=== PATIENT | male | born 1945 | race Caucasian/White ===

== ENCOUNTER 2021-05-29 10:55 | Outpatient (CLI) | payer MEDICARE, OTHER, SELFPAY ==
--- NOTE | 2021-05-29 11:15 | XR_ITS ---
WS: [id number] CHEST 2 VIEWS HISTORY: ASTHMA EXACERBATION COMPARISON: 05/18/2018 Lungs: Benign granuloma the LEFT lung base. Subsegmental atelectasis at the LEFT lung base is similar to the prior study. Cardiac size: Normal. Mediastinum/Aorta: Mild atherosclerosis aorta. Bones: Normal. XR/XR chest 2V* [id number] IMPRESSION: Subsegmental atelectasis at the LEFT lung base. No pneumonia.
== END 2021-05-29 10:56 | disposition home or self-care (01) ==
PROVIDERS: PCP Clinical Nurse Specialist Adult Health; Visit Provider Clinical Nurse Specialist Adult Health
DX: J45.901 Unspecified asthma with (acute) exacerbation (principal); J98.11 Atelectasis
CPT/HCPCS: 71046

== ENCOUNTER → 2021-07-25 14:36 | Outpatient (BNVA) | payer MEDICARE, OTHER, SELFPAY | PROVIDERS: Visit Provider Clinical Nurse Specialist Adult Health | DX: N18.30 Chronic kidney disease, stage 3 unspecified (principal); E05.90 Thyrotoxicosis, unspecified without thyrotoxic crisis or storm; Z79.899 Other long term (current) drug therapy | CPT/HCPCS: 80048; 81000; 82042; 82306; 82310; 83036; 83735; 83970; 84100; 84550 ==

== ENCOUNTER 2021-12-06 12:40 | Emergency (ER) | payer MEDICARE, OTHER, SELFPAY ==
--- NOTE | 2021-12-06 12:46 | ECG_ITS ---
[facility] Test Date: 2021-12-06 Pat Name: Ralph Reyes Department: Room: Gender: Male Field Organizer: : 1945 Requested By: Maryana Chahal Order Number: [id number] Nicole MD: Casa Parks M.D. Measurements Intervals [place] Rate: 29 P: [place]: QRS: -44 QRSD: 142 T: -28 QT: 527 QTc: 371 Interpretive Statements COMPLETE HEART BLOCK No previous ECG available for comparison Electronically Signed On 12-06-2021 16:21:21 CDT by Casa Parks M.D. [id number]
[2021-12-06 12:47] VITALS: PULSE 29; RESP 16; TEMP 36.2; O2SAT 97
--- NOTE | 2021-12-06 12:50 | XR_ITS ---
WS: [id number] XR chest 1V portable [id number] REASON FOR EXAM: cp FINDINGS: Chest is unchanged compared to previous examination of 05/29/2021. Mild to moderate tortuosity the thoracic aorta with calcification of the aortic arch. Normal heart size. Calcified granulomatous disease in both hemithoraces. No acute pulmonary parenchymal or pleural abnormality. Parenchymal scarring in the left lung base wit h pleural thickening blunting the left costophrenic angle. Mild changes of degenerative spondylosis in the mid and lower thoracic spine. XR/XR chest 1V portable [id number] IMPRESSION: No acute chest abnormality.
--- NOTE | 2021-12-06 12:58 | ED_ITS ---
HPI - Arrhythmia/Palpitations General: Chief Complaint: Arrhythmia/Palpitations Stated Complaint: sent for EKG Time Seen by Provider: 12/06/21 12:52 Source: patient Mode of arrival: ambulatory Limitations: no limitations History of Present Illness: 76-year-old male who has been having weakness along with shortness of breath since yesterday. He states it started suddenly and he is just fixed felt extremely weak this felt better when he is laid down he went to see his PCP today and they did checked his heart rate and it was in the 30s he has no history of abnormal heart rates he is not on any beta-blockers patient's heart rate is 30 here as well. Denies any pain. Associated symptoms: Deny nausea or vomiting Review of Systems Const: Denies: fever(s), chills, body aches or change in appetite Eyes: Denies: blurry vision or eye discomfort ENMT: Denies: throat pain or dental pain Card: Reports: irregular heart rhythm Resp: Reports: dyspnea GI: Denies: abdominal pain, nausea, vomiting or diarrhea : Denies: dysuria Musc: Denies: neck pain or back pain Skin/Breast: Denies: rash Neuro: Denies: headache(s) Psych: Denies: depression Juan Pablo/Lymph: Denies: easy bruising All/Imm: Denies: urticaria PFSH ED PFSH: Medical History Hypertension Social History Smoking and tobacco status: never smoked Alcohol intake: never Physical Exam Const: COMMON NORMALS: patient oriented x3 HENMT: COMMON NORMALS: normocephalic and atraumatic HEAD & SCALP: normocephalic and atraumatic Eye: COMMON NORMALS: Equal, round and reactive pupils present and EOMs intact bilaterally PUPIL: Yes Equal, round and reactive pupils present Neck/C-Spine: COMMON NORMALS: full ROM and supple Chest: COMMONS NORMALS: normal inspection of the chest and normal palpation of entire chest wall Resp: COMMON NORMALS: normal respiratory effort, No retractions, No use of accessory muscles and clear to auscultation bilaterally AUSCULTATION: clear to auscultation bilaterally Cardio: COMMON NORMALS: regular rhythm and No murmurs present (Cardio) RATE: bradycardic RHYTHM: regular rhythm GI: COMMON NORMALS: Normal to inspection, nondistended, normoactive bowel sounds present, Soft to palpation, non-tender and no masses PALPATION: Yes Soft to palpation Extremity: COMMON NORMALS: normal to inspection and full ROM Neuro: COMMON NORMALS: patient oriented x3, moves all extremities and no focal motor deficits Psych: COMMON NORMALS: mental status grossly normal, Normal thought process present and cooperative THOUGHT PROCESS: Normal thought process present Skin: COMMON NORMALS: no rashes or lesions noted and no wounds GENERAL SKIN EXAM: no rashes or lesions noted Course Vital Signs: Vital signs: Vital Signs Temperature 97.2 F L 12/06/21 12:47 Pulse Rate 29 L 12/06/21 12:47 Respiratory Rate 16 12/06/21 12:47 Pulse Oximetry 97 12/06/21 12:47 Oxygen Delivery Me thod 12/06/21 12:47 MDM - Arrhythmia/Palpitations Medical Decision Making Patient presents with a third-degree heart block his heart rate has improved after atropine currently is 40 his blood pressures been normal here 140/55 currently I spoke to Dr. Rebolledo on for cardiology the [address] Guo and Dr. Ozuna who does pacemakers are both out of town and so will transfer I did speak to [facility] will transfer there for higher level of care at this time. Lab Data : 12/06/21 13:00 12/06/21 13:00 Radiology Impressions Chest X-Ray 12/06/21 12:50 IMPRESSION: No acute chest abnormality. Laboratory Results WBC 9.6 10^3/uL (4.0-10.0) 12/06/21 13:00 RBC 5.10 10^6/uL (4.1-5.3) 12/06/21 13:00 Hgb 15.3 g/dL (11.7-16.6) 12/06/21 13:00 Hct 47.4 % (42.0-52.0) 12/06/21 13:00 MCV 92.9 fl (80-94) 12/06/21 13:00 MCH 30.0 pg (28.0-34.0) 12/06/21 13:00 MCHC 32.3 g/dL (30.0-36.0) 12/06/21 13:00 RDW 12.8 % (12.1-15.1) 12/06/21 13:00 Plt Count 326 10^3/cmm (130-400) 12/06/21 13:00 MPV 10.7 fL (7.4-10.4) H 12/06/21 13:00 Neut % (Auto) 68.8 % 12/06/21 13:00 Lymph % (Auto) 18.7 % 12/06/21 13:00 Cavalier % (Auto) 11.2 % 12/06/21 13:00 Eos % (Auto) 0.8 % 12/06/21 13:00 Baso % (Auto) 0.3 % 12/06/21 13:00 Neut # (Auto) 6.61 10^3/uL (1.8-7.7) 12/06/21 13:00 Lymph # (Auto) 1.8 10^3/uL (0.8-4.8) 12/06/21 13:00 Cavalier # (Auto) 1.1 10^3/uL (0.2-0.9) H 12/06/21 13:00 Eos # (Auto) 0.1 10^3/uL (0.0-0.8) 12/06/21 13:00 Baso # (Auto) 0.0 10^3/uL (0.0-0.1) 12/06/21 13:00 Nucleated RBC % (auto) 0 % 12/06/21 13:00 Nucleated RBCs # 0.0 /100WBC 12/06/21 13:00 EKG Data EKG 1: I personally reviewed and interpreted this EKG as follows: EKG interpretation date: 12/06/21 EKG interpretation time: 13:00 Interpretation: third degree heart block hr [address] or t wave abnormalities qrs 144 qtc 378 Other EKG comments: Chest X-Ray 12/06/21 12:50 IMPRESSION: No acute chest abnormality. Critical Care Time Critical Care Time: Critical Care Time: Yes Total Critical Care Time: 40 Attestation: The high probability of a clinically significant, sudden or life threatening deterioration of the patient's cv system(s) required my full and direct attention, intervention and personal management. The critical care time is as shown. This time is in addition to time spent performing any reported procedures but includes the following: [x] Data and vital sign review and interpretation [x] Patient assessment, examination and intervention [x] Documentation [x] Medication orders and management Discharge Plan Discharge Patient Disposition: Xfer Short-Term Hosp Clinical Impression: Heart block AV third degree Condition: Stable Prescriptions: No Action omega-3 fatty acids 500 mg capsule 500 mg PO DAILY aspirin [Adult Aspirin Regimen] 81 mg tablet,delayed release (DR/EC) 81 mg PO DAILY amlodipine 5 mg tablet 5 mg PO DAILY furosemide 40 mg tablet 40 mg PO DAILY losartan-hydrochlorothiazide 50-12.5 mg tablet 1 tab PO DAILY Referrals: Michael Sy HIGHWAY DESIGN ENGINEER [Primary Care Provider] - Coding Level of Care Code ED Supervisor Process Testing for Chg Fwd Exam Comprehensive
--- NOTE | 2021-12-06 13:00 | ECG_ITS ---
[facility] Test Date: 2021-12-06 Pat Name: Ralph Reyes Department: Room: Gender: Male Package Worker: : 1945 Requested By: Maryana Chahal Order Number: [id number] Nicole MD: Casa Parks M.D. Measurements Intervals [place] Rate: 30 P: [place]: QRS: -42 QRSD: 144 T: -28 QT: 520 QTc: 367 Interpretive Statements THIRD DEGREE AV BLOCK No previous ECG available for comparison Electronically Signed On 12-06-2021 16:20:57 CDT by Casa Parks M.D. [id number]
[2021-12-06] MEDS: atropine 0.1 mg/mL Syr 10 mL 0.5 MG IVP (13:08)
[2021-12-06 13:18] LABS: Basophils % 0.3 %; Eosinophils # 0.1 10^3/uL (0.0-0.8); Eosinophils % 0.8 %; Hematocrit 47.4 % (42.0-52.0); Hemoglobin 15.3 g/dL (11.7-16.6); Lymphocytes # 1.8 10^3/uL (0.8-4.8); Lymphocytes % 18.7 %; Mean Corpuscular HGB Conc 32.3 g/dL (30.0-36.0); Mean Corpuscular Volume 92.9 fl (80-94); Mean Platelet Volume 10.7 fL (7.4-10.4); Monocytes # 1.1 10^3/uL (0.2-0.9); Monocytes % 11.2 %; Neutrophils # 6.61 10^3/uL (1.8-7.7); Neutrophils % 68.8 %; Nucleated Red Blood Cells % 0 %; Platelet Count 326 10^3/cmm (130-400); Red Cell Distribution Width 12.8 % (12.1-15.1); White Blood Count 9.6 10^3/uL (4.0-10.0)
[2021-12-06 13:22] VITALS: BP 140/55; PULSE 38; RESP 12; O2SAT 97
[2021-12-06 13:33] LABS: Troponin(5th) Baseline 54 ng/L (0-15)
[2021-12-06 13:42] LABS: Alanine Aminotransferase 33 U/L (0-41); Albumin Level 3.8 g/dL (3.5-5.2); Alkaline Phosphatase 115 U/L (40-130); Blood Urea Nitrogen 36 mg/dL (8-23); Calcium 9.7 mg/dL (8.5-10.5); Carbon Dioxide 28 mmol/L (22-29); Chloride 104 mmol/L (98-107); Globulin 2.5 g/dL (1.3-4.6); Glucose 118 mg/dL (65-115); Osmolality Calculated 301 mOsm/kg (285-295); Sodium 141 mmol/L (136-145); Thyroid Stimulating Hormone 2.75 uIU/mL (0.27-4.20); Total Bilirubin 0.5 mg/dL (0.15-1.2); Total Protein 6.3 g/dL (6.6-8.7)
[2021-12-06 13:43] LABS: Anion Gap 13.6 (5-19); Aspartate Amino Transferase 26 U/L (0-40); Potassium 4.6 mmol/L (3.5-5.1)
[2021-12-06] MEDS: lidocaine 2% viscous 15 ML, aluminum-mag hydrox-simethicon 30 ML, sucralfate oral liq 1 GM PO (14:01)
== END 2021-12-06 14:05 | disposition short-term general hospital (02) ==
PROVIDERS: Emergency Provider Emergency Medicine; PCP Clinical Nurse Specialist Adult Health
DX: I44.2 Atrioventricular block, complete (principal); I10 Essential (primary) hypertension; Z79.82 Long term (current) use of aspirin
CPT/HCPCS: 71045; 80053; 84443; 84484; 85025; 93005; 96374; 99285; J0461

== ENCOUNTER → 2022-01-24 11:53 | Outpatient (BNVA) | payer MEDICARE, OTHER, SELFPAY | PROVIDERS: PCP Clinical Nurse Specialist Adult Health; Visit Provider Clinical Nurse Specialist Adult Health | DX: I10 Essential (primary) hypertension (principal) | CPT/HCPCS: 80053; 82043; 85025 ==

== ENCOUNTER → 2022-07-19 12:04 | Outpatient (BNVA) | payer MEDICARE, OTHER, SELFPAY | PROVIDERS: PCP Clinical Nurse Specialist Adult Health; Visit Provider Clinical Nurse Specialist Adult Health | DX: E87.5 Hyperkalemia (principal); N18.9 Chronic kidney disease, unspecified; I10 Essential (primary) hypertension; Z85.46 Personal history of malignant neoplasm of prostate | CPT/HCPCS: 80053; 80061; 84153; 85025 ==

== ENCOUNTER → 2022-08-02 11:37 | Outpatient (BNVA) | payer MEDICARE, OTHER, SELFPAY | PROVIDERS: PCP Clinical Nurse Specialist Adult Health; Visit Provider Clinical Nurse Specialist Adult Health | DX: R73.01 Impaired fasting glucose (principal) | CPT/HCPCS: 83036 ==

== ENCOUNTER → 2022-10-23 13:59 | Outpatient (BNVA) | payer MEDICARE, OTHER, SELFPAY | PROVIDERS: PCP Clinical Nurse Specialist Adult Health; Visit Provider Clinical Nurse Specialist Adult Health | DX: R73.01 Impaired fasting glucose (principal); M10.9 Gout, unspecified; N52.9 Male erectile dysfunction, unspecified | CPT/HCPCS: 83036 ==

== ENCOUNTER 2022-11-05 14:21 | Outpatient (CLI) | payer MEDICARE, OTHER, SELFPAY ==
[2022-11-05 15:02] LABS: Add Urine Culture? No; Bilirubin Urine Neg (Negative); Blood Urine Neg (Negative); Glucose Urine UA Norm (Normal); Hyaline Casts Urine 0-4 /lpf; Ketones Urine Negative (Negative); Leukocyte Esterase Urine Negative (Negative); Nitrate Urine Negative (Negative); Protein Urine Neg (Negative); RBC Urine 0-4 /hpf (0-2); Squamous Epithelial Cell Urine 0-4 /hpf (0-5); Urine Appearance Clear (CLEAR); Urine Color Yellow (Yellow); Urobilinogen Urine Norm (Negative); WBC Urine 0-4 /hpf (0-5); pH Urine 5 (5-7)
[2022-11-05 15:09] LABS: Anion Gap 13.5 (5-19); Blood Urea Nitrogen 37 mg/dL (8-23); Calcium 9.3 mg/dL (8.5-10.5); Carbon Dioxide 26 mmol/L (22-29); Chloride 105 mmol/L (98-107); Glucose 92 mg/dL (65-115); Osmolality Calculated 298 mOsm/kg (285-295); Phosphorus 3.1 mg/dL (2.5-4.5); Potassium 4.5 mmol/L (3.5-5.1); Sodium 140 mmol/L (136-145); Uric Acid 9.1 mg/dL (3.4-7.0)
[2022-11-05 15:10] LABS: Calcium 9.1 mg/dL (8.5-10.5)
[2022-11-05 15:16] LABS: Parathyroid Hormone 63.5 pg/mL (15-65)
== END 2022-11-05 14:22 | disposition home or self-care (01) ==
LOC: LAB 14:28
PROVIDERS: PCP Clinical Nurse Specialist Adult Health; Visit Provider Internal Medicine
DX: N18.31 Chronic kidney disease, stage 3a (principal); M1A.9XX0 Chronic gout, unspecified, without tophus (tophi); N25.81 Secondary hyperparathyroidism of renal origin
CPT/HCPCS: 36415; 80048; 81001; 82310; 83735; 83970; 84100; 84550

== ENCOUNTER 2022-12-17 11:31 | Outpatient (CLI) | payer MEDICARE, OTHER, SELFPAY ==
--- NOTE | 2022-12-17 11:43 | US_ITS ---
WS: [id number] RENAL ULTRASOUND URINARY BLADDER ULTRASOUND HISTORY: STAGE 3A CHRONIC KIDNEY DZ COMPARISON: None available. TECHNIQUE: 2-D and color Doppler imaging of the kidney submitted. Right kidney: 10.4 cm x 5.1 cm x 4.1 cm. Normal size kidney. No hydronephrosis. Simple cyst upper pole measures 2.2 x 1.7 x 1.3 cm. No solid m ass. No cortical thinning. Left kidney: 10.8 cm x 5.7 cm x 3.4 cm. Normal echogenicity with no hydronephrosis or mass. Aorta: Not visualized. Obscured by bowel gas. Urinary Bladder: Normal distention. No intraluminal mass. No post void residual. IMPRESSION: 1. No renal obstruction or solid mass. 2. No renal atrophy. 3. No post void residual.
== END 2022-12-17 11:32 | disposition home or self-care (01) ==
PROVIDERS: PCP Clinical Nurse Specialist Adult Health; Visit Provider Internal Medicine
DX: I12.9 Hypertensive chronic kidney disease with stage 1 through stage 4 chronic kidney disease, or unspecified chronic kidney disease (principal); N18.31 Chronic kidney disease, stage 3a; N17.9 Acute kidney failure, unspecified; M1A.9XX0 Chronic gout, unspecified, without tophus (tophi); N25.81 Secondary hyperparathyroidism of renal origin
CPT/HCPCS: 76770; 76857

== ENCOUNTER 2023-06-11 11:36 | Outpatient (CLI) | payer MEDICARE, OTHER, SELFPAY ==
[2023-06-11 12:10] LABS: Add Urine Microscopic? NO; Charge for UA Resulting for Rev
[2023-06-11 12:26] LABS: Bilirubin Urine Neg (Negative); Blood Urine Neg (Negative); Glucose Urine UA Norm (Normal); Ketones Urine Negative (Negative); Leukocyte Esterase Urine Negative (Negative); Nitrate Urine Negative (Negative); Protein Urine Neg (Negative); Specific Gravity, Urine 1.015 (1.005-1.030); Urine Appearance Clear (CLEAR); Urine Color Yellow (Yellow); Urobilinogen Urine Norm (Negative); pH Urine 5 (5-7)
[2023-06-11 12:42] LABS: Albumin Level 3.8 g/dL (3.5-5.2); Anion Gap 13.8 (5-19); Blood Urea Nitrogen 39 mg/dL (8-23); Calcium 8.7 mg/dL (8.5-10.5); Carbon Dioxide 26 mmol/L (22-29); Chloride 107 mmol/L (98-107); Glucose 102 mg/dL (65-115); Magnesium 2.2 mg/dL (1.7-2.3); Osmolality Calculated 304 mOsm/kg (285-295); Phosphorus 3.1 mg/dL (2.5-4.5); Potassium 4.8 mmol/L (3.5-5.1); Sodium 142 mmol/L (136-145); Uric Acid 9.7 mg/dL (3.4-7.0)
[2023-06-11 12:52] LABS: Calcium 8.8 mg/dL (8.5-10.5)
[2023-06-11 12:59] LABS: Parathyroid Hormone 89.2 pg/mL (15-65)
== END 2023-06-11 11:37 | disposition home or self-care (01) ==
LOC: LAB 11:40
PROVIDERS: PCP Clinical Nurse Specialist Adult Health; Visit Provider Nurse Practitioner Gerontology
DX: N17.9 Acute kidney failure, unspecified (principal)
CPT/HCPCS: 36415; 80048; 81003; 82040; 82310; 83735; 83970; 84100; 84550; 85018

== ENCOUNTER → 2023-07-31 09:19 | Outpatient (BNVA) | payer MEDICARE, SELFPAY | PROVIDERS: PCP Clinical Nurse Specialist Adult Health; Visit Provider Clinical Nurse Specialist Adult Health | DX: M10.9 Gout, unspecified (principal); N52.8 Other male erectile dysfunction | CPT/HCPCS: 84550 ==

== ENCOUNTER → 2023-09-02 08:34 | Outpatient (BNVA) | payer MEDICARE, SELFPAY | PROVIDERS: PCP Clinical Nurse Specialist Adult Health; Visit Provider Clinical Nurse Specialist Adult Health | DX: M10.9 Gout, unspecified (principal) | CPT/HCPCS: 84550 ==

== ENCOUNTER → 2024-02-24 12:39 | Outpatient (BNVA) | payer MEDICARE, OTHER, SELFPAY | PROVIDERS: PCP Clinical Nurse Specialist Adult Health; Visit Provider Clinical Nurse Specialist Adult Health | DX: C61 Malignant neoplasm of prostate | CPT/HCPCS: 84153 ==

== ENCOUNTER → 2024-06-10 10:24 | Outpatient (BNVA) | payer MEDICARE, OTHER, SELFPAY | PROVIDERS: PCP Clinical Nurse Specialist Adult Health | DX: R60.0 Localized edema (principal); I50.9 Heart failure, unspecified | CPT/HCPCS: 80053; 83880; 84550; 85025 ==

== ENCOUNTER 2024-06-28 08:09 | Emergency (ER) | payer MEDICARE, OTHER, SELFPAY ==
[2024-06-28 08:21] VITALS: BP 174/78; PULSE 104; RESP 19; TEMP 36.4; O2SAT 96; BMI 33.0
--- NOTE | 2024-06-28 08:38 | ECG_ITS ---
[facility] Test Date: 2024-06-28 Pat Name: Ralph Reyes Department: Room: Gender: Male Computer Technical Specialist: : 1945 Requested By: Porfirio Bridges Order Number: [id number] Nicole MD: Casa Parks M.D. Measurements Intervals [place] Rate: 93 P: 57 RI: 187 QRS: -68 QRSD: 173 T: 90 QT: 401 QTc: 501 Interpretive Statements ELECTRONIC VENTRICULAR PACEMAKER Compared to ECG 12/06/2021 13:00:06 No significant changes Electronically Signed On 06-28-2024 22:25:06 CDT by Casa Parks M.D. [id number] [id number]
--- NOTE | 2024-06-28 08:38 | XR_ITS ---
WS: [id number] Exam: XR chest 1V portable [id number] Date/Time of Exam: 06/28/2024 8:45 AM Reason For Exam: dyspnea/cough Comparison 12/06/2021. The lungs are fully inflated and clear. Normal cardiomediastinal silhouette for technique. No pleural effusion. Permanent cardiac pacer superimposes the LEFT chest. XR/XR chest 1V portable [id number] IMPRESSION: 1. Negative chest.
[2024-06-28 08:54] VITALS: PULSE 73; O2SAT 95
--- NOTE | 2024-06-28 08:57 | W.ED.EXTPRO ---
HPI - Extremity Problem General: Chief complaint: Extremity Problem,Nontraumatic Stated complaint: both legs swelling/ Cough/ Congestion Time Seen by Provider: 06/28/24 08:37 History of Present Illness: 78-year-old male presents emergency room with bilateral leg swelling cough and congestion. He has not had any chest pain or hemoptysis. His biggest complaint is pain in hislegs. He had stopped all of his medications because he being frustrated that they were not working. Associated symptoms: Deny chest pain, fever(s) or rash Related Data Home Medications ?Medication ?Instructions ?Recorded ?Confirmed aspirin 81 mg tablet,delayed 81 mg PO DAILY 11/26/19 06/28/24 release (Adult Aspirin Regimen) omega-3 fatty acids 500 mg capsule 500 mg PO DAILY 11/26/19 06/28/24 calcium carbonate (Tums Extra 300 mg PO DAILY 01/14/22 06/28/24 Strength Smoothies) cetirizine 10 mg tablet (Zyrtec) 10 mg PO DAILY PRN allergies 01/14/22 06/28/24 latanoprost 0.005 % eye drops 1 drp ophthalmic (eye) DAILY 08/05/22 06/28/24 acetylcysteine 600 mg capsule (NAC) 600 mg PO DAILY 05/24/24 06/28/24 acetylglucosamine (bulk) 1 ea miscellaneous TID 05/24/24 06/28/24 (z-gqaxhc-upeaa-d-glucosamine powder) Previous Rx's ?Medication ?Instructions ?Recorded zinc sulfate 25 mg zinc (110 mg) 25 mg PO DAILY #30 tabs 12/02/23 tablet (Orazinc) tadalafil 10 mg tablet 10 - 20 mg (1 - 2 x 10 mg) PO 05/24/24 DAILY PRN sexual activity #30 tabs triamcinolone acetonide 0.1 % 1 applic topical DAILY #15 grams 05/24/24 topical cream allopurinol 200 mg tablet 200 mg PO DAILY #30 tabs 06/28/24 amlodipine 2.5 mg tablet 2.5 mg PO DAILY #30 tabs 06/28/24 losartan 50 mg tablet 50 mg PO BID #60 tabs 06/28/24 methylprednisolone 4 mg tablets in See Rx Instructions PO .COMPLEX 06/28/24 a dose pack (Medrol (Art)) #21 ea pregabalin 75 mg capsule (Lyrica) 75 mg PO BID #60 caps 06/28/24 Allergies Allergy/AdvReac Type Severity Reaction Status Date / Time morphine Allergy RASH Verified 06/17/24 13:13 Review of Systems Const: Denies: fever(s) or chills Card: Denies: chest pain Resp: Denies: dyspnea GI: Denies: abdominal pain : Denies: dysuria, urinary frequency or urinary urgency Musc: Denies: neck pain or back pain Skin/Breast: Denies: rash PFSH ED PFSH: Medical History Erectile dysfunction Gout Elevated fasting glucose Prediabetic with an A1c of 5.9% in October 2022 Seasonal allergies Mild intermittent asthma CKD (chronic kidney disease) follows with Dr Marlon Snow History of prostate cancer 2002 AV block, 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 Hypertension Surgical History S/P cardiac pacemaker procedure H/O hernia repair Family History Son CAD (coronary artery disease) Social History Smoking and tobacco/nicotine status: never used tobacco/nicotine Alcohol intake: never Substance/Drug Use: never Physical Exam Const: COMMON NORMALS: no acute distress GENERAL APPEARANCE: cooperative and comfortable ORIENTATION/CONSCIOUSNESS: Yes awake, Yes oriented to person, Yes oriented to place and Yes oriented to time HENMT: COMMON NORMALS: normocephalic, atraumatic and hearing grossly normal bilaterally HEAD & SCALP: normocephalic and atraumatic Resp: COMMON NORMALS: normal respiratory effort, No retractions, No use of accessory muscles and clear to auscultation bilaterally AUSCULTATION: clear to auscultation bilaterally Cardio: COMMON NORMALS: regular rate, regular rhythm and No murmurs present (Cardio) RATE: regular rate RHYTHM: regular rhythm GI: COMMON NORMALS: Soft to palpation and No hepatosplenomegaly present AUSCULTATION: Yes normoactive bowel sounds PALPATION: Yes Soft to palpation, No Tenderness to palpation present (GI), No Guarding due to palpation present (GI) and Yes No hepatosplenomegaly present Extremity: COMMON NORMALS: normal to inspection, capillary refill normal, no clubbing, cyanosis or edema, no calf tenderness and no pedal edema Neuro: SENSORIUM/ORIENTATION: Yes oriented to person, Yes oriented to place and Yes oriented to time Skin: COMMON NORMALS: no rashes or lesions noted GENERAL SKIN EXAM: no rashes or lesions noted Course Vital Signs: Vital signs: Vital Signs Temperature 97.5 F L 06/28/24 08:21 Pulse Rate 71 06/28/24 11:23 Respiratory Rate 19 H 06/28/24 08:21 Blood Pressure 126/65 06/28/24 11:23 Pulse Oximetry 96 06/28/24 11:23 Oxygen Delivery Me thod Room Air 06/28/24 08:21 MDM - Extremity (Nontraumatic) Medical Decision Making Clinically does not appear to have an acute gout attack. It may be subacute and it is resolving concerning as it was a sudden cessation of the allopurinol it may worsen. I am concerned about the high dose of allopurinol along with colchicine which is specific has significant potential for nephrotoxicity. His kidney function overall is doing fairly well I think he be better served by treating with steroids. His blood pressure is significantly elevated which is concerning. Recommend he start back on low-dose amlodipine. He seems to be tolerating the losartan well we will start him back on losartan 50 mg twice a day a Medrol Dosepak and finally started him on Lyrica 75 mg 1 p.o. twice daily some of his complaints of pain in his feet are concerning for possible neuropathic pain. This may need to be further evaluated on an outpatient basis. Reviewed all the suggestions with the patient recommend follow-up. Lab Data 06/28/24 09:02 06/28/24 09:02 Radiology Impressions Chest X-Ray 06/28/24 08:38 IMPRESSION: 1. Negative chest. Laboratory Results WBC 6.67 10^3/uL (3.29-11.43) 06/28/24 09:02 RBC 4.91 10^6/uL (3.85-5.65) 06/28/24 09:02 Hgb 14.60 g/dL (11.27-16.99) 06/28/24 09:02 Hct 45.6 % (37-53) 06/28/24 09:02 MCV 92.9 fl (82-101) 06/28/24 09:02 MCH 29.7 pg (27-33) 06/28/24 09:02 MCHC 32.0 g/dL (30-55) 06/28/24 09:02 RDW 12.6 % (12.1-15.1) 06/28/24 09:02 Plt Count 370 10^3/cmm (157-399) 06/28/24 09:02 MPV 9.8 fL (7.4-10.4) 06/28/24 09:02 Neut % (Auto) 76.4 % 06/28/24 09:02 Lymph % (Auto) 12.1 % 06/28/24 09:02 [place] % (Auto) 8.2 % 06/28/24 09:02 Eos % (Auto) 2.4 % 06/28/24 09:02 Baso % (Auto) 0.6 % 06/28/24 09:02 Neut # (Auto) 5.09 10^3/uL (1.8-7.7) 06/28/24 09:02 Lymph # (Auto) 0.8 10^3/uL (0.8-4.8) 06/28/24 09:02 [place]yer # (Auto) 0.6 10^3/uL (0.2-0.9) 06/28/24 09:02 Eos # (Auto) 0.2 10^3/uL (0.0-0.8) 06/28/24 09:02 Baso # (Auto) 0.0 10^3/uL (0.0-0.1) 06/28/24 09:02 Nucleated RBC % (auto) 0 % 06/28/24 09:02 Nucleated RBCs # 0.0 /100WBC 06/28/24 09:02 Sodium 141 mmol/L (136-145) 06/28/24 09:02 Potassium 4.7 mmol/L (3.5-5.1) 06/28/24 09:02 Chloride 105 mmol/L (98-107) 06/28/24 09:02 Carbon Dioxide 28 mmol/L (22-29) 06/28/24 09:02 Anion Gap 12.7 (5-19) 06/28/24 09:02 BUN 26 mg/dL (8-23) H 06/28/24 09:02 Creatinine 1.4 mg/dL (0.7-1.2) H 06/28/24 09:02 GFR Calculation Not Reportable 06/28/24 09:02 Glucose 148 mg/dL (65-115) H 06/28/24 09:02 Calculated Osmolality 300 mOsm/kg (285-295) H 06/28/24 09:02 Calcium 9.3 mg/dL (8.5-10.5) 06/28/24 09:02 Total Bilirubin 0.6 mg/dL (0.15-1.2) 06/28/24 09:02 AST 23 U/L (0-40) 06/28/24 09:02 ALT 29 U/L (0-41) 06/28/24 09:02 Alkaline Phosphatase 213 U/L (40-130) H 06/28/24 09:02 C-Reactive Protein 40.6 mg/L (0.0-4.9) H 06/28/24 09:02 NT-Pro-B Natriuret Pep 96 pg/mL (0-450) 06/28/24 09:02 Total Protein 6.6 g/dL (6.6-8.7) 06/28/24 09:02 Albumin 3.7 g/dL (3.5-5.2) 06/28/24 09:02 Globulin 2.9 g/dL (1.3-4.6) 06/28/24 09:02 Urine Color Yellow (Yellow) 06/28/24 09:19 Urine Appearance Clear (CLEAR) 06/28/24 09:19 Urine pH 6 (5-7) 06/28/24 09:19 Ur Specific [place] 1.015 (1.005-1.030) 06/28/24 09:19 Urine Protein Neg (Negative) 06/28/24 09:19 Urine Glucose (UA) Norm (Normal) 06/28/24 09:19 Urine Ketones Negative (Negative) 06/28/24 09:19 Urine Blood Neg (Negative) 06/28/24 09:19 Urine Nitrate Negative (Negative) 06/28/24 09:19 Urine Bilirubin Neg (Negative) 06/28/24 09:19 Urine Urobilinogen Norm mg/dL (Negative) 06/28/24 09:19 Ur Leukocyte Esterase Negative (Negative) 06/28/24 09:19 Urine RBC 0-2 /hpf (0-2) 06/28/24 09:19 Urine WBC 0-5 /hpf (0-5) 06/28/24 09:19 Ur Squamous Epith Cells 0-5 /hpf (0-5) 06/28/24 09:19 Amorphous Sediment Not Reportable 06/28/24 09:19 Urine Bacteria None seen /hpf (NONE) 06/28/24 09:19 Hyaline Casts 1.65 /lpf 06/28/24 09:19 Influenza A (PCR) Negative (Negative) 06/28/24 09:14 Influenza Type B (PCR) Negative (Negative) 06/28/24 09:14 RSV (PCR) Negative (Negative) 06/28/24 09:14 SARS-CoV-2 (PCR) Negative (Negative) 06/28/24 09:14 All radiology interpretation(s) finalized by discharge Discharge Plan Discharge Patient Disposition: Home Clinical Impression: CKD (chronic kidney disease) Hypertension Qualifiers: Hypertension type: primary hypertension Qualified Code(s): I10 - Essential (primary) hypertension Condition: Stable Prescriptions: New amlodipine 2.5 mg tablet 2.5 mg PO DAILY Qty: 30 0RF pregabalin [Lyrica] 75 mg capsule 75 mg PO BID Qty: 60 0RF losartan 50 mg tablet 50 mg PO BID Qty: 60 0RF allopurinol 200 mg tablet 200 mg PO DAILY Qty: 30 0RF methylprednisolone [Medrol (Art)] 4 mg tablets,dose pack See Rx Instructions .ROUTE .COMPLEX Qty: 21 0RF Rx Instructions: orally per package directions Discontinued losartan 100 mg tablet 100 mg PO DAILY Qty: 90 3RF colchicine 0.6 mg tablet See Rx Instructions PO DAILY Qty: 12 3RF Rx Instructions: take 4 tablets on day 1, then two tablets x 4 days orally daily; allopurinol 100 mg tablet 400 mg PO DAILY No Action omega-3 fatty acids 500 mg capsule 500 mg PO DAILY aspirin [Adult Aspirin Regimen] 81 mg tablet,delayed release (DR/EC) 81 mg PO DAILY calcium carbonate [Tums Extra Strength Smoothies] 300 mg (750 mg) tablet,chewable 300 mg PO DAILY cetirizine [Zyrtec] 10 mg tablet 10 mg PO DAILY PRN (Reason: allergies) latanoprost 0.005 % drops 1 drp ophthalmic (eye) DAILY Orazinc 25 mg zinc (110 mg) tablet 25 mg PO DAILY Qty: 30 0RF acetylcysteine [NAC] 600 mg capsule 600 mg PO DAILY a-lfaqes-lvzct-d-glucosamine Powder 1 ea miscellaneous TID tadalafil 10 mg tablet 10 - 20 mg PO DAILY PRN (Reason: sexual activity) Qty: 30 2RF Rx Instructions: administer approximately 30min before sexual activity; do not use more than 2 tabs per 24hrs triamcinolone acetonide 0.1 % cream 1 applic topical DAILY Qty: 15 0RF Rx Instructions: daily X 14 days Discharge Orders: Discharge ED (Routine); Ordered 06/28/24 Ordered By: Porfirio Villanueva Referrals: Michael Sy, EXCEPTIONAL CHILDREN'S TEACHER [Primary Care Provider] - Discharge Diet: Usual diet Discharge Activity: Increase activity as tolerated Patient Instructions: Opioid Safety, Pain Management Activity Restrictions/Additional Instructions: Thank you for choosing [facility] for your healthcare needs today. It is very important that you follow up as instructed or that you return to the Emergency Department should you have concerns or if your condition changes or worsens in any way. You are seen emergency room with complaint of bilateral foot pain. While you do not appear on physical exam to have a acute gouty arthritis flare given your history is possible there is some chronic issues going on. Would recommend restarting the allopurinol. Recommend however because of your chronic kidney disease that you take 200 mg daily. Do not take any further colchicine given your chronic kidney disease would avoid this you could better be treated with steroid tapers. You were given steroid shot in the emergency room and started on oral steroids for a week long taper. Finally your blood pressure is significantly elevated recommend restarting amlodipine 2.5 mg daily started on losartan 50 mg twice daily. You should have your kidney function rechecked by your primary care doctor within a week. In addition to these measures also recommend that you start on pregabalin which can help with the chronic foot pain. You may have some mild swelling of your lower extremities with these medication changes in part due to the amlodipine as well as pregabalin. This left to be reassessed at your follow-up visit. Print Language: Kosovan Coding Level of Care Code ED Fundraising Specialist for Anita Condon
[2024-06-28 09:15] LABS: Basophils % 0.6 %; Eosinophils # 0.2 10^3/uL (0.0-0.8); Eosinophils % 2.4 %; Hematocrit 45.6 % (37-53); Lymphocytes # 0.8 10^3/uL (0.8-4.8); Lymphocytes % 12.1 %; Mean Corpuscular Hemoglobin 29.7 pg (27-33); Mean Corpuscular Volume 92.9 fl (82-101); Mean Platelet Volume 9.8 fL (7.4-10.4); Monocytes # 0.6 10^3/uL (0.2-0.9); Monocytes % 8.2 %; Neutrophils # 5.09 10^3/uL (1.8-7.7); Neutrophils % 76.4 %; Nucleated Red Blood Cells % 0 %; Platelet Count 370 10^3/cmm (157-399); Red Blood Count 4.91 10^6/uL (3.85-5.65); Red Cell Distribution Width 12.6 % (12.1-15.1); White Blood Count 6.67 10^3/uL (3.29-11.43)
[2024-06-28 09:48] LABS: Alanine Aminotransferase 29 U/L (0-41); Albumin Level 3.7 g/dL (3.5-5.2); Alkaline Phosphatase 213 U/L (40-130); Anion Gap 12.7 (5-19); Aspartate Amino Transferase 23 U/L (0-40); Blood Urea Nitrogen 26 mg/dL (8-23); C Reactive Protein 40.6 mg/L (0.0-4.9); Calcium 9.3 mg/dL (8.5-10.5); Carbon Dioxide 28 mmol/L (22-29); Chloride 105 mmol/L (98-107); Creatinine Clr Calc Pharmacy 49.4598; Globulin 2.9 g/dL (1.3-4.6); Glucose 148 mg/dL (65-115); NT Pro B Type Natriuretic Pept 96 pg/mL (0-450); Osmolality Calculated 300 mOsm/kg (285-295); Potassium 4.7 mmol/L (3.5-5.1); Sodium 141 mmol/L (136-145); Total Bilirubin 0.6 mg/dL (0.15-1.2); Total Protein 6.6 g/dL (6.6-8.7)
[2024-06-28 09:52] LABS: Bacteria Urine None Seen /hpf; Hyaline Casts Urine 1.65 /lpf; RBC Urine 0-2 /hpf (0-2); Squamous Epithelial Cell Urine 0-5 /hpf (0-5); WBC Urine 0-5 /hpf (0-5)
[2024-06-28 09:54] VITALS: PULSE 71; O2SAT 94
[2024-06-28 09:56] LABS: Add Urine Culture? No; Add Urine Microscopic? YES; Bilirubin Urine Neg (Negative); Blood Urine Neg (Negative); Glucose Urine UA Norm (Normal); Ketones Urine Negative (Negative); Leukocyte Esterase Urine Negative (Negative); Nitrate Urine Negative (Negative); Protein Urine Neg (Negative); Specific Gravity, Urine 1.015 (1.005-1.030); Urine Appearance Clear (CLEAR); Urine Color Yellow (Yellow); Urobilinogen Urine Norm (Negative); pH Urine 6 (5-7)
[2024-06-28 10:11] LABS: Influenza A NEGATIVE (Negative); Influenza B NEGATIVE (Negative); Respiratory Syncytial Virus Ce NEGATIVE (Negative); SARS-CoV-2 PCR NEGATIVE (Negative)
[2024-06-28 10:54] VITALS: BP 126/65; PULSE 71; O2SAT 96
[2024-06-28 11:23] VITALS: BP 126/65; PULSE 71; O2SAT 96
== END 2024-06-28 11:26 | disposition home or self-care (01) ==
PROVIDERS: Emergency Provider Family Medicine; PCP Clinical Nurse Specialist Adult Health
DX: I12.9 Hypertensive chronic kidney disease with stage 1 through stage 4 chronic kidney disease, or unspecified chronic kidney disease (principal); N18.9 Chronic kidney disease, unspecified; Z11.52 Encounter for screening for COVID-19; Z79.82 Long term (current) use of aspirin
CPT/HCPCS: 36415; 71045; 80053; 81001; 83880; 85025; 86140; 87637; 93005; 99285

== ENCOUNTER 2024-07-05 14:40 | Outpatient (CLI) | payer MEDICARE, OTHER, SELFPAY ==
[2024-07-05 15:11] LABS: Bacteria Urine None Seen /hpf; Hyaline Casts Urine 0-4 /lpf; RBC Urine 0-2 /hpf (0-2); Squamous Epithelial Cell Urine 0-5 /hpf (0-5); WBC Urine 0-5 /hpf (0-5)
[2024-07-05 15:27] LABS: Creatinine Urine, Random 107 mg/dL (39-259); Microalbum Creatinine Ratio Ur 9 mg/dL (0-20); Microalbumin Random Urine 1 ug/dL (0-20)
[2024-07-05 15:36] LABS: Anion Gap 12.8 (5-19); Blood Urea Nitrogen 26 mg/dL (8-23); Calcium 8.4 mg/dL (8.5-10.5); Carbon Dioxide 26 mmol/L (22-29); Chloride 106 mmol/L (98-107); Glucose 96 mg/dL (65-115); Magnesium 1.9 mg/dL (1.7-2.3); Osmolality Calculated 295 mOsm/kg (285-295); Phosphorus 3.8 mg/dL (2.5-4.5); Potassium 4.8 mmol/L (3.5-5.1); Sodium 140 mmol/L (136-145)
[2024-07-05 15:42] LABS: Urine Appearance Clear (CLEAR); Urine Color Yellow (Yellow)
[2024-07-05 15:43] LABS: Add Urine Culture? No; Bilirubin Urine Neg (Negative); Blood Urine Neg (Negative); Glucose Urine UA Norm (Normal); Ketones Urine Negative (Negative); Leukocyte Esterase Urine Negative (Negative); Nitrate Urine Negative (Negative); Protein Urine Neg (Negative); Specific Gravity, Urine 1.015 (1.005-1.030); Urobilinogen Urine Norm (Negative); pH Urine 7 (5-7)
[2024-07-05 15:52] LABS: 25 Hydroxy Vitamin D 22 ng/mL (30-100)
== END 2024-07-05 14:41 | disposition home or self-care (01) ==
LOC: LAB 14:44
PROVIDERS: PCP Clinical Nurse Specialist Adult Health; Visit Provider Internal Medicine
DX: L30.0 Nummular dermatitis (principal); L82.1 Other seborrheic keratosis; L57.8 Other skin changes due to chronic exposure to nonionizing radiation; X32.XXXA Exposure to sunlight, initial encounter; L81.4 Other melanin hyperpigmentation; L91.8 Other hypertrophic disorders of the skin; L73.8 Other specified follicular disorders; L57.0 Actinic keratosis; N17.9 Acute kidney failure, unspecified; N18.9 Chronic kidney disease, unspecified; E55.9 Vitamin D deficiency, unspecified; N15.9 Renal tubulo-interstitial disease, unspecified; I12.9 Hypertensive chronic kidney disease with stage 1 through stage 4 chronic kidney disease, or unspecified chronic kidney disease; N18.31 Chronic kidney disease, stage 3a; N25.81 Secondary hyperparathyroidism of renal origin; M1A.9XX0 Chronic gout, unspecified, without tophus (tophi)
CPT/HCPCS: 17000; 36415; 80048; 81001; 82044; 82306; 83735; 84100; 99204

== ENCOUNTER → 2024-11-01 14:39 | Outpatient (BNVA) | payer MEDICARE, OTHER, SELFPAY | PROVIDERS: PCP Clinical Nurse Specialist Adult Health; Visit Provider Clinical Nurse Specialist Adult Health | DX: N18.9 Chronic kidney disease, unspecified (principal); E87.5 Hyperkalemia; I50.31 Acute diastolic (congestive) heart failure; Z85.46 Personal history of malignant neoplasm of prostate | CPT/HCPCS: 80053; 83880 ==

== ENCOUNTER 2024-11-05 08:14 | Outpatient (CLI) | payer MEDICARE, OTHER, SELFPAY ==
--- NOTE | 2024-11-05 08:15 | USCV_ITS ---
Ralph Reyes Age: 79 Gender: M : 1945 Exam Date: 11/05/2024 08:26 Ordering Phys: Michael Sy NP Technologist: KAREN Exam Location: [facility] Indication: Acute HF BP: 136 / 64 HR: 71 Rhythm: Sinus Technical Quality: Adequate MEASUREMENTS (Male / Female) Normal Values 2D ECHO LV Diastolic Diameter PLAX 5.3 cm 4.2 - 5.9 / 3.9 - 5.3 cm IVS Diastolic Thickness 1.2 cm 0.6 - 1.0 / 0.6 - 0.9 cm IVS Systolic Thickness 2.0 cm LVPW Diastolic Thickness 1.3 cm 0.6 - 1.0 / 0.6 - 0.9 cm LVPW Systolic Thickness 1.7 cm LVOT Diameter 2.1 cm LV Ejection Fraction 2D Teich 57.5 % LV Ejection Fraction MOD 4C 60.9 % LV Ejection Fraction MOD 2C 51.0 % LV Ejection Fraction 2C AL 52.6 % LA Diameter 4.1 cm RA Systolic Volume 4C AL 46.9 ml RA Systolic Volume 4C MOD 46.5 ml LA Sys Volume AL 56.6 cm cubed LA Sys Volume Index AL 25.4 cm cubed/m squared M-MODE LA Ao Ratio MM 1.2 AV Cusp Separation MM 1.7 cm DOPPLER AV Peak Velocity 117.0 cm/s LVOT Peak Velocity 85.0 cm/s AV Area Cont Eq vti 2.2 cm squared AV Area Cont Eq pk 2.6 cm squared MV Peak Velocity 107.0 cm/s MV Area PHT 4.4 cm squared Mitral E to A Ratio 0.5 TV Peak Velocity 141.0 cm/s TR Peak Velocity 191.0 cm/s TR Peak Gradient 14.6 mmHg TV Peak E Velocity 75.0 cm/s PV Peak Velocity 95.0 cm/s FINDINGS Left Ventricle Normal left ventricular cavity size. Mild concentric normal left ventricular size and systolic function, EF 57%. Mild paradoxical septal motion. Right Ventricle Normal right ventricular size and systolic function. Right Atrium Normal right atrial size. Left Atrium Normal left atrial size. Mitral Valve Structurally normal mitral valve. Mitral annular calcification. No mitral valve stenosis. No mitral valve regurgitation. Aortic Valve No aortic valve stenosis. No aortic valve regurgitation. Tricuspid Valve Trace tricuspid valve regurgitation. Normal pulmonary pressure Pulmonic Valve Structurally normal pulmonic valve. No pulmonary valve stenosis. No pulmonary valve regurgitation. Pericardium No pericardial effusion. Aorta Normal size aortic root and proximal ascending aorta. IVC Normal inferior vena cava. CONCLUSIONS 1. Normal left ventricular size and systolic function, EF 57%. Mild paradoxical septal motion. Normal diastolic function. 2. Normal valvular function 3. Mild concentric left ventricular hypertrophy Omkar Diamond MD, FACC (Electronically Signed) Final Date: 05 November 2024 13:12 S
== END 2024-11-05 08:15 | disposition home or self-care (01) ==
LOC: RAD 08:15
PROVIDERS: PCP Clinical Nurse Specialist Adult Health; Visit Provider Clinical Nurse Specialist Adult Health
DX: I50.31 Acute diastolic (congestive) heart failure (principal); I51.7 Cardiomegaly
CPT/HCPCS: 93306

== ENCOUNTER 2025-01-10 13:52 | Outpatient (CLI) | payer MEDICARE, OTHER, SELFPAY ==
[2025-01-10 15:04] LABS: Hemoglobin 13.80 g/dL (11.27-16.99)
[2025-01-10 15:08] LABS: Glucose Urine UA Negative (Normal); Nitrate Urine Negative (Negative); Specific Gravity, Urine 1.012 (1.005-1.030)
[2025-01-10 15:27] LABS: Creatinine Urine, Random 122 mg/dL (39-259); Microalbum Creatinine Ratio Ur 25 mg/dL (0-20)
[2025-01-10 15:29] LABS: Add Urine Microscopic? YES
[2025-01-10 15:33] LABS: Albumin Level 3.9 g/dL (3.5-5.2); Anion Gap 14.6 (5-19); Blood Urea Nitrogen 30 mg/dL (8-23); Calcium 8.5 mg/dL (8.5-10.5); Carbon Dioxide 26 mmol/L (22-29); Chloride 101 mmol/L (98-107); Glucose 158 mg/dL (65-115); Magnesium 2.1 mg/dL (1.7-2.3); Osmolality Calculated 293 mOsm/kg (285-295); Potassium 4.6 mmol/L (3.5-5.1); Sodium 137 mmol/L (136-145)
[2025-01-10 15:38] LABS: Calcium 8.5 mg/dL (8.5-10.5)
[2025-01-10 16:14] LABS: Uric Acid 9.8 mg/dL (3.4-7.0)
== END 2025-01-10 13:53 | disposition home or self-care (01) ==
PROVIDERS: PCP Clinical Nurse Specialist Adult Health; Visit Provider Nurse Practitioner Gerontology
DX: N18.32 Chronic kidney disease, stage 3b (principal); I12.9 Hypertensive chronic kidney disease with stage 1 through stage 4 chronic kidney disease, or unspecified chronic kidney disease
CPT/HCPCS: 36415; 80048; 81001; 82040; 82044; 82310; 83735; 83970; 84100; 84550; 85018